=== PATIENT | male | born 1985 | race Caucasian/White ===

== ENCOUNTER → 2020-12-16 13:55 | Outpatient (BNVA) | payer OTHER, SELFPAY | PROVIDERS: PCP Internal Medicine; Visit Provider Urology ==

== ENCOUNTER 2021-02-02 15:00 | Outpatient (REF) | payer OTHER, SELFPAY ==
--- NOTE | ~2021-02-02 | US_ITS ---
EXAMINATION: US SCROTUM CLINICAL INFORMATION: Hydrocele, unspecified. COMPARISON: None TECHNIQUE: A sonogram of the scrotum was performed assessing savage-scale appearance and color Doppler flow. Spectral Doppler analysis of the arterial and venous flow were performed in the testes bilaterally. FINDINGS: RIGHT: Right testicle measures 4.2 x 2.4 x 2.9 cm, volume 14.8 mL. No focal testicular parenchymal lesions are visualized. Spectral Doppler analysis of the arterial and venous flow is normal in the right testis. Right epididymal head is normal in size. There is a small right hydrocele. No right varicocele is seen. Right epididymal Doppler flow is normal. LEFT: Left testicle measures 3.8 x 2.1 x 2.8 cm, volume 11.5 mL. No focal testicular parenchymal lesions are visualized. Spectral Doppler analysis of the arterial and venous flow is normal in the left testis. Left epididymal head is normal in size. There is a small to moderate hydrocele. There is a small left varicocele. Left epididymal Doppler flow is normal. US/US scrotum IMPRESSION: Bilateral hydroceles, left greater than right. Small left varicocele.
== END 2021-02-02 15:01 | disposition home or self-care (01) ==
LOC: HO.US 15:00
PROVIDERS: Visit Provider Urology
DX: N43.3 Hydrocele, unspecified (principal); N46.9 Male infertility, unspecified
CPT/HCPCS: 76870

== ENCOUNTER → 2021-03-02 13:42 | Outpatient (BNVA) | payer OTHER, SELFPAY | PROVIDERS: PCP Internal Medicine; Visit Provider Urology ==